=== PATIENT | male | born 1940 | race Caucasian/White ===

== ENCOUNTER → 2020-04-12 16:07 | Outpatient (BNVA) | payer MEDICARE, OTHER, SELFPAY | PROVIDERS: Family Provider Internal Medicine; PCP Internal Medicine; Visit Provider Internal Medicine | DX: R04.2 Hemoptysis (principal) | CPT/HCPCS: 80053; 85025 ==

== ENCOUNTER 2020-04-19 09:30 | Outpatient (CLI) | payer MEDICARE, OTHER, SELFPAY ==
--- NOTE | 2020-04-19 09:38 | XR_ITS ---
WS: [id number] XR chest 2V* [id number] REASON FOR EXAM: Hemoptysis FINDINGS: Emphysematous changes are again noted with hyperaerated lungs and decreased vascularity. Ma rkedly tortuous descending thoracic aorta. The cardiac silhouette is not enlarged. There is no pneumonia, pleural effusion, pulmonary edema, or mass effect noted. If symptoms of hemoptysis persist recommend CT evaluation chest be made. XR/XR chest 2V* [id number] IMPRESSION: Chronic obstructive pulmonary disease Tortuous descending thoracic aorta.
== END 2020-04-19 09:31 | disposition home or self-care (01) ==
LOC: RAD 09:36
PROVIDERS: PCP Internal Medicine; Visit Provider Internal Medicine Critical Care Medicine
DX: R04.2 Hemoptysis (principal); J44.9 Chronic obstructive pulmonary disease, unspecified; Q25.46 Tortuous aortic arch
CPT/HCPCS: 71046

== ENCOUNTER 2020-04-29 08:56 | Outpatient (CLI) | payer MEDICARE, OTHER, SELFPAY ==
--- NOTE | 2020-04-29 09:00 | CT_ITS ---
WS: [id number] CT CHEST TECHNIQUE: Contrast enhanced CT of the chest with coronal and sagittal reformatted images. CLINICAL INFORMATION: hemoptysis COMPARISON: None. DLP: 1097.[address] scans at [facility] use at least one of these dose optimization techniques: automat ed exposure control; mA and/or kV adjustment per patient size (includes targeted exams where dose is matched to clinical indication); or iterative reconstruction. FINDINGS: Mild chronic emphysematous changes. Slight hazy groundglass opacities left upper lobe.. No consolidat ion pleural fluid. Small noncalcified pulmonary nodule superior segment right lower lobe measuring 3. 5 mm. Thyroid gland is normal. Normal caliber thoracic aorta. Coronary calcification. Proximal main pulmona ry arteries are normal. No mediastinal or hilar lymphadenopathy. Adrenal glands are normal. Small esophageal hiatal hernia. Low-attenuation lesion measuring 2.1 cm al vamshi the falciform ligament likely hepatic cysts. Hypertrophic changes mid thoracic spine. CT/CT chest w con* [id number] IMPRESSION: 1. Normal caliber thoracic aorta. Proximal main pulmonary arteries are normal. 2. Mild chronic emphysematous changes. 3. Faint hazy groundglass infiltrates in the left upper lobe may be infectious or inflammatory. Recommend correlation for pneumonitis. Lungs are otherwise cl ear and well aerated. 4. Small noncalcified pulmonary nodule in the super segment right lower lobe m easuring 3.5 mm. Recommend 6 month follow-up
[2020-04-29] MEDS: iohexol 300 mg/mL 100 mL Btl IV (09:26)
== END 2020-04-29 08:57 | disposition home or self-care (01) ==
LOC: RADWPI 09:01
PROVIDERS: Family Provider Internal Medicine; PCP Internal Medicine; Visit Provider Internal Medicine
DX: R04.2 Hemoptysis (principal); R91.8 Other nonspecific abnormal finding of lung field
CPT/HCPCS: 71260; Q9967

== ENCOUNTER 2020-06-03 11:59 | Outpatient (CLI) | payer MEDICARE, OTHER, SELFPAY ==
--- NOTE | 2020-06-03 12:05 | XRR_ITS ---
PROCEDURE INFORMATION: Exam: XR Lumbosacral Spine, 2 or 3 Views Exam date and time: 06/03/2020 12:30 PM Age: 79 years old Clinical indication: Other: Left leg pain TECHNIQUE: Imaging protocol: XR of the lumbosacral spine, 3 views. Other technique: AP, lateral and spot lateral views of the lumbar spine are submitted. COMPARISON: No relevant prior studies available. FINDINGS: Vertebrae: Bilateral L5 spondylolysis. There is 17.0 mm anterolisthesis of L5 on S1 in the neutral position. L3-L4, L4-L5 and L5, S1 vertebral body marginal osteophytes. Severe posterior L5-S1 degenerative disc narrowing with mild spondylosis. Vasculature: Mild aortic atherosclerotic calcification without aneurysm. Soft tissues: Unremarkable. XR/XR lumbar spine 2-3V* [id number] IMPRESSION: 1. Bilateral L5 spondylolysis. 2. Grade 2 L5-S1 anterolisthesis. 3. Additional degenerative changes as above. 4. No acute lumbar spinal bony abnormality identified.
== END 2020-06-03 12:00 | disposition home or self-care (01) ==
LOC: RAD 12:04
PROVIDERS: PCP Internal Medicine; Visit Provider Internal Medicine
DX: M79.605 Pain in left leg (principal); M47.816 Spondylosis without myelopathy or radiculopathy, lumbar region
CPT/HCPCS: 72100

== ENCOUNTER 2020-06-08 13:29 | Outpatient (CLI) | payer MEDICARE, OTHER, SELFPAY ==
--- NOTE | 2020-06-08 13:45 | MR_ITS ---
WS: [id number] MRI LUMBAR SPINE NONCONTRAST HISTORY: M43.17 Spondylolisthesis, lumbosacral region COMPARISON: 12/09/2006 TECHNIQUE: Sagittal and axial multisequence imaging is submitted. Increase in thoracic kyphosis. L4 anterolisthesis by 16 mm. Anterolisthesis has slightly increased since 2006. There is severe disc space narrowing with the L4 vertebral body invaginating into the superior endplate of L5. No acute ma rrow edema. Diffuse osteopenia. Disc spaces are narrowed and desiccated, most significant L4-5 and L5-S1. Conus terminates normally at L1-2 disc level. L1-L2: Very mild annular disc bulging and osteophytic ridging. Shallow LEFT paracentral disc protrusi on is causing mild narrowing of the LEFT subarticular recess. L2-L3: Mild annular disc bulging and osteophytic ridging. There is a central disc protrusion which ex trudes caudad from the disc space. There is significant deformity upon the thecal sac and subarticula r recesses. Mild bilateral foraminal stenosis. L3-L4: Mild diffuse annular disc bulging and osteophytic ridging. There is a shallow central disc pro trusion with mild narrowing of the LEFT subarticular recess. Mild bilateral facet joint arthritis and fluid in the facet joints. Mild bilateral foraminal narrowing, LEFT greater than RIGHT. L4-L5: Deformity of the thecal sac due to the anterolisthesis of L4. Facet joint arthritis encroachin g upon the thecal sac, moderate subarticular recess and bilateral foraminal stenosis. L5-S1: Diffuse annular disc bulging with annular fissures in the disc and osteophytes. No significant stenosis. MR/MR lumbar spine wo con* [id number] IMPRESSION: 1. Moderate progression of degenerative spondylitic changes throughout the lum bar spine since 2006. 2. Grade 2 spondylolisthesis of L4 with mild progression since 2006. Complete obliteration of the L4-5 disc space. 3. Moderate subarticular recess and foraminal stenosis at the L4-5 level 4. Central disc protrusion at L2-3 extruded caudad from the disc space. Modera te central and subarticular recess stenosis. 5. Mild narrowing of the LEFT subarticular recess and bilateral foraminal at L 3-4.
== END 2020-06-08 13:30 | disposition home or self-care (01) ==
LOC: RADSHAW 13:33
PROVIDERS: PCP Internal Medicine; Visit Provider Nurse Practitioner Family
DX: M43.17 Spondylolisthesis, lumbosacral region (principal); M43.16 Spondylolisthesis, lumbar region; M48.061 Spinal stenosis, lumbar region without neurogenic claudication; M51.26 Other intervertebral disc displacement, lumbar region
CPT/HCPCS: 72148

== ENCOUNTER 2020-06-16 06:00 | Outpatient (RCR) | payer MEDICARE, OTHER, SELFPAY | END 2020-07-04 23:59 | disposition home or self-care (01) | LOC: SPT 06:00 | PROVIDERS: PCP Internal Medicine; Visit Provider Nurse Practitioner Family | DX: M79.605 Pain in left leg (principal); M54.9 Dorsalgia, unspecified; M19.90 Unspecified osteoarthritis, unspecified site | CPT/HCPCS: 97110; 97162; 99204 ==

== ENCOUNTER → 2020-07-01 12:28 | Outpatient (BNVA) | payer MEDICARE, OTHER, SELFPAY | PROVIDERS: PCP Internal Medicine; Visit Provider Anesthesiology Pain Medicine | DX: M51.16 Intervertebral disc disorders with radiculopathy, lumbar region (principal); M54.9 Dorsalgia, unspecified | CPT/HCPCS: 64483; 64484; J1040; J3490 ==

== ENCOUNTER 2020-07-05 06:00 | Outpatient (RCR) | payer MEDICARE, OTHER, SELFPAY | END 2020-08-03 23:59 | disposition home or self-care (01) | LOC: SPT 06:00 | PROVIDERS: PCP Internal Medicine; Visit Provider Nurse Practitioner Family | DX: M79.605 Pain in left leg (principal); M54.9 Dorsalgia, unspecified; M19.90 Unspecified osteoarthritis, unspecified site | CPT/HCPCS: 97110 ==

== ENCOUNTER → 2020-07-15 13:14 | Outpatient (BNVA) | payer MEDICARE, OTHER, SELFPAY | PROVIDERS: PCP Internal Medicine; Visit Provider Anesthesiology Pain Medicine | DX: M51.16 Intervertebral disc disorders with radiculopathy, lumbar region (principal); M54.9 Dorsalgia, unspecified | CPT/HCPCS: 64483; 64484; J1040; J3490 ==

== ENCOUNTER → 2020-08-08 10:39 | Outpatient (BNVA) | payer MEDICARE, OTHER, SELFPAY | PROVIDERS: PCP Internal Medicine; Visit Provider Anesthesiology Pain Medicine | DX: M54.9 Dorsalgia, unspecified (principal); M43.16 Spondylolisthesis, lumbar region; M43.17 Spondylolisthesis, lumbosacral region; M47.816 Spondylosis without myelopathy or radiculopathy, lumbar region; M51.16 Intervertebral disc disorders with radiculopathy, lumbar region | CPT/HCPCS: 99212 ==

== ENCOUNTER → 2021-01-17 08:17 | Outpatient (BNVA) | payer MEDICARE, OTHER, SELFPAY | PROVIDERS: PCP Internal Medicine; Visit Provider Urology | DX: C61 Malignant neoplasm of prostate (principal) | CPT/HCPCS: 81003; 84153 ==

== ENCOUNTER 2021-05-11 12:15 | Outpatient (CLI) | payer MEDICARE, OTHER, SELFPAY ==
[2021-05-11 13:05] LABS: Estmated Average Glucose 97
== END 2021-05-11 12:16 | disposition home or self-care (01) ==
LOC: LAB 12:16
PROVIDERS: PCP Internal Medicine; Visit Provider Internal Medicine
DX: Z00.00 Encounter for general adult medical examination without abnormal findings (principal)
CPT/HCPCS: 36415; 83036

== ENCOUNTER → 2021-09-06 09:49 | Outpatient (BNVA) | payer MEDICARE, OTHER, SELFPAY | PROVIDERS: PCP Internal Medicine; Referring Provider Internal Medicine; Visit Provider Anesthesiology Pain Medicine | DX: G89.29 Other chronic pain (principal); M43.16 Spondylolisthesis, lumbar region; M47.816 Spondylosis without myelopathy or radiculopathy, lumbar region; M51.16 Intervertebral disc disorders with radiculopathy, lumbar region; M43.17 Spondylolisthesis, lumbosacral region; Z87.891 Personal history of nicotine dependence | CPT/HCPCS: 99214 ==

== ENCOUNTER → 2021-09-11 13:26 | Outpatient (BNVA) | payer MEDICARE, OTHER, SELFPAY | PROVIDERS: PCP Internal Medicine; Visit Provider Anesthesiology Pain Medicine | DX: G89.29 Other chronic pain (principal); M51.16 Intervertebral disc disorders with radiculopathy, lumbar region; M47.816 Spondylosis without myelopathy or radiculopathy, lumbar region; M43.16 Spondylolisthesis, lumbar region; M43.17 Spondylolisthesis, lumbosacral region | CPT/HCPCS: 99213 ==

== ENCOUNTER 2021-10-03 06:00 | Outpatient (RCR) | payer MEDICARE, OTHER, SELFPAY | END 2021-10-03 23:59 | disposition home or self-care (01) | LOC: SPT 06:00 | PROVIDERS: PCP Internal Medicine; Referring Provider Anesthesiology Pain Medicine; Visit Provider Anesthesiology Pain Medicine | DX: M54.50 Low back pain, unspecified (principal); G89.29 Other chronic pain | CPT/HCPCS: 97110; 97161 ==

== ENCOUNTER → 2022-06-18 14:26 | Outpatient (BNVA) | payer MEDICARE, SELFPAY | PROVIDERS: PCP Internal Medicine; Visit Provider Podiatrist Foot & Ankle Surgery | DX: Q82.8 Other specified congenital malformations of skin (principal); B07.8 Other viral warts; M20.41 Other hammer toe(s) (acquired), right foot; M20.42 Other hammer toe(s) (acquired), left foot; M21.611 Bunion of right foot; L84 Corns and callosities | CPT/HCPCS: 99213; 99214 ==

== ENCOUNTER → 2022-07-30 12:52 | Outpatient (BNVA) | payer MEDICARE, SELFPAY | PROVIDERS: PCP Internal Medicine; Visit Provider Podiatrist Foot & Ankle Surgery | DX: L84 Corns and callosities (principal); B07.8 Other viral warts; M20.41 Other hammer toe(s) (acquired), right foot; M21.611 Bunion of right foot; M20.42 Other hammer toe(s) (acquired), left foot; Q82.8 Other specified congenital malformations of skin | CPT/HCPCS: 17110 ==

== ENCOUNTER → 2024-03-24 14:49 | Outpatient (BNVA) | payer MEDICARE, SELFPAY | PROVIDERS: PCP Internal Medicine; Referring Provider Dermatology; Visit Provider Orthopaedic Surgery | DX: M51.16 Intervertebral disc disorders with radiculopathy, lumbar region (principal); M47.816 Spondylosis without myelopathy or radiculopathy, lumbar region; M43.16 Spondylolisthesis, lumbar region; M43.17 Spondylolisthesis, lumbosacral region | CPT/HCPCS: 72110; 99204 ==

== ENCOUNTER 2024-04-08 08:53 | Outpatient (CLI) | payer MEDICARE, SELFPAY ==
--- NOTE | 2024-04-08 08:45 | MR_ITS ---
WS: [id number] MRI LUMBAR SPINE NONCONTRAST TECHNIQUE: Sagittal T1, T2 and STIR imaging. Axial T1 and T2 imaging. CLINICAL INFORMATION: back pain COMPARISON: MRI 2020 FINDINGS: Small central protrusion in the cervical spine drawer in [employer] imaging at C5-6 with slight indentation on the c ervical cord. Mild central canal stenosis. Grade 2 anterolisthesis L4 on L5 with chronic spondylolysi s. This appears relatively stable compared to 2020. Anterolisthesis measures 16 mm. L1-L2: Mild disc bulging with mild central canal stenosis. Narrowing of the LEFT subarticular recess. Central canal stenosis at this level appears slightly progressed. Mild bilateral foraminal narrowing . L2-L3: Mild disc bulging with moderate narrowing of the thecal sac. Epidural fat contributes to steno sis. Moderate facet arthropathy. Mild LEFT foraminal narrowing. L3-L4: Mild disc bulging with slight impingement subarticular recess bilaterally. Mild central canal stenosis appears slightly progressed. Moderate facet arthropathy. Mild LEFT greater than RIGHT forami nal narrowing. L4-L5: Chronic spondylolysis L4 on L5 with grade 2 anterolisthesis. This appears stable compared to p revious. Slight effacement of the ventral thecal sac. Severe bilateral foraminal narrowing unchanged. Advanced facet arthropathy. L5-S1: Disc osteophyte complex. Slight contact of the RIGHT S1 nerve root. Mild RIGHT foraminal narro wing. LEFT foramen is patent. Mild facet arthropathy. Visualized pelvic bony structures: Normal. Paravertebral soft tissues: Normal. Small LEFT renal cyst. MR/MR lumbar spine wo con* [id number] IMPRESSION: 1. Grade 2 anterolisthesis L4 on L5 with chronic spondylolysis appears stable compared to previous. 2. Progressed mild central canal stenosis L1-L2 and L3-4. 3. Stable moderate narrowing of thecal sac L2-3 with prominent epidural fat. 4. Mild bilateral foraminal narrowing L1-L2, L2-3, and LEFT L3-4. 5. Stable severe bilateral foraminal narrowing L4-5. 6. Degenerative endplate type changes with Schmorl's nodes at L2-3 progressed compared to previous.
== END 2024-04-08 08:54 | disposition home or self-care (01) ==
LOC: RAD 08:54
PROVIDERS: PCP Internal Medicine; Visit Provider Orthopaedic Surgery
DX: M47.816 Spondylosis without myelopathy or radiculopathy, lumbar region (principal); M43.17 Spondylolisthesis, lumbosacral region; M43.16 Spondylolisthesis, lumbar region; M51.16 Intervertebral disc disorders with radiculopathy, lumbar region; M48.061 Spinal stenosis, lumbar region without neurogenic claudication; M99.63 Osseous and subluxation stenosis of intervertebral foramina of lumbar region; M51.46 Schmorl's nodes, lumbar region; M25.78 Osteophyte, vertebrae
CPT/HCPCS: 72148

== ENCOUNTER → 2024-04-16 14:32 | Outpatient (BNVA) | payer MEDICARE, OTHER, SELFPAY | PROVIDERS: PCP Internal Medicine; Visit Provider Orthopaedic Surgery | DX: Z09 Encounter for follow-up examination after completed treatment for conditions other than malignant neoplasm (principal) | CPT/HCPCS: 99214 ==

== ENCOUNTER 2025-05-21 09:01 | Outpatient (CLI) | payer MEDICARE, OTHER, SELFPAY ==
--- NOTE | 2025-05-21 09:15 | MR_ITS ---
WS: [id number] MRI BRAIN WITH AND WITHOUT CONTRAST HISTORY: RECURRENT OCCIPITAL HEADACHE COMPARISON: CT head 06/17/2017 TECHNIQUE: Multiplanar imaging performed through the brain with MultiHance 20 ml's IV. No acute infarcts are seen. Hsieh-white matter differentiation is well preserved. Moderate T2 and FLAIR signal hyperintensity surrounding the ventricles and in the subcortical white matter. Mild cerebral and cerebellar atrophy. No susceptibility artifacts or prior lacunar infarcts. Ventricles and extra-axial spaces are normal. Clivus and pituitary gland are normal. Visualized posterior fossa and brainstem are also normal. Postcontrast images are negative for masses or vascular malformations. Dural venous sinuses are normal. Paranasal sinuses: Mucoperiosteal thickening and airspace disease in the RIGHT maxillary sinus. No air-fluid levels. Mastoid air cells: Normal. Calvarium and scalp: Normal. MR/MR head wo/w con [id number] IMPRESSION: 1. No acute infarcts. Normal diffusion imaging. 2. Mild atrophy and moderate small vessel ischemic disease. 3. No enhancing masses or vascular malformations. 4. RIGHT maxillary sinus disease.
--- NOTE | 2025-05-21 09:15 | MR_ITS ---
WS: [id number] MRI CERVICAL SPINE with and without contrast HISTORY: RECURRENT OCCIPITAL HEADACHE COMPARISON: 06/21/2009 Technique: Multiplanar, multisequence noncontrast imaging of the cervical spine. Postcontrast MultiHance 20 mL. C5 retrolisthesis by 3 mm. Degenerative disc disease and endplate osteophytes have progressed since 2008. No acute fracture. Facet joints are normally aligned. Normal signal within the cord. Signal within the cervical cord is normal. Visualized posterior fossa is unremarkable. Craniocervical junction, C1 and C2 relationship, odontoid process and soft tissues are normal. Incidental note is made of a lipoma measuring 2.5 cm in the posterior cervical soft tissues. C2-C3: Mild disc bulging and facet arthritis. Small amount of edema in the LEFT facet joint. Mild LEFT foraminal stenosis. C3-C4: Mild annular disc bulging. Small foraminal osteophytes and mild facet arthritis. Mild foraminal stenosis. C4-C5: Mild osteophytic ridging with facet arthritis. Moderate LEFT and mild RIGHT foraminal stenosis. C5-C6: Diffuse osteophytic ridging and annular disc bulging. Asymmetric disc osteophyte to the RIGHT. Mild effacement of CSF and disc osteophyte contact on the RIGHT lateral cervical cord. Moderate central and bilateral foraminal stenosis, LEFT greater than RIGHT. Mild facet arthritis. C6-C7: Diffuse annular disc bulging and osteophytic ridging. Mild central and bilateral foraminal stenosis. C7 anterolisthesis by 3 mm. C7-T1: Normal. No discitis or osteomyelitis. No enhancing mass in the cervical cord. MR/MR cervical spine wo/w [id number] IMPRESSION: 1. Progression of degenerative disc and osteophyte disease in the cervical spi ne since 2008. 2. C5 retrolisthesis by 3 mm and C7 anterolisthesis by 3 mm. 3. Mild LEFT foraminal stenosis at C2-3 with LEFT facet joint synovitis. 4. Moderate LEFT and mild RIGHT foraminal stenosis at C4-5. 5. Moderate central with bilateral foraminal stenosis at C5-6 due to an asymme tric disc osteophyte complex which extends greatest to the RIGHT. 6. Mild central and bilateral foraminal stenosis at C6-7. 7. Mild foraminal stenosis at C3-4. 8. No enhancing masses.
[2025-05-21] MEDS: gadobenate dimeglumine 20 mL vial IV (10:55)
== END 2025-05-21 09:02 | disposition home or self-care (01) ==
LOC: RAD 09:03
PROVIDERS: PCP Internal Medicine; Visit Provider Internal Medicine
DX: R51.9 Headache, unspecified (principal); J32.0 Chronic maxillary sinusitis; M43.12 Spondylolisthesis, cervical region; M48.02 Spinal stenosis, cervical region; M65.98 Unspecified synovitis and tenosynovitis, other site; M25.78 Osteophyte, vertebrae
CPT/HCPCS: 70553; 72156; A9577

== ENCOUNTER 2025-09-16 08:43 | Outpatient (RCR) | payer MEDICARE, SELFPAY | END 2025-10-03 23:59 | disposition home or self-care (01) | LOC: SPT 08:43 | PROVIDERS: Visit Provider General Practice | DX: M47.812 Spondylosis without myelopathy or radiculopathy, cervical region (principal) | CPT/HCPCS: 97110; 97161 ==

== ENCOUNTER 2025-10-04 05:00 | Outpatient (RCR) | payer MEDICARE, SELFPAY | END 2025-10-06 13:18 | disposition home or self-care (01) | LOC: SPT 05:00 | PROVIDERS: Visit Provider General Practice | DX: M47.812 Spondylosis without myelopathy or radiculopathy, cervical region (principal) | CPT/HCPCS: 97110 ==